=== PATIENT | female | born 1970 | race Caucasian/White ===

== ENCOUNTER 2020-04-10 10:36 | Day surgery (SDC) | payer OTHER ==
[~2020-04-10 10:36] MED LIST: HYDROCHLOROTH12.5 M1
[2020-04-10] MEDS ORDERED: MIRALAX17 GM PO (14:48)
[2020-04-10] MEDS ORDERED: ULTRAM50 MG PO (14:48)
[2020-04-10] MEDS ORDERED: TYLENOL ARTHRI650 MG PO (14:48)
== END 2020-04-10 17:25 | disposition home or self-care (01) ==
LOC: CIR.AMB 10:36
PROVIDERS: ATTEND Surgery
DX: K42.0 Umbilical hernia with obstruction, without gangrene (principal); Z20.828 Contact with and (suspected) exposure to other viral communicable diseases

== ENCOUNTER 2025-05-16 11:00 | Day surgery (SDC) | payer OTHER ==
[2025-05-13 09:43] VITALS: BP 145/83
[2025-05-13 10:24] LABS: BASO % 0.8 % (0.1-1.2); EOS # 0.07 (0.04-0.54); EOS % 1.1 % (0.7-7.0); LYMPH # 1.71 (1.18-3.74); LYMPH % 27.4 % (19.3-53.1); MEAN PLATELET VOLUME 10.70 fl (9.4-12.4); MONO # 0.48 (0.24-0.82); MONO % 7.7 % (4.7-12.5); NEUT # 3.92 (1.56-6.13); NEUT % 62.8 % (34.0-71.1); RED CELL DISTRIBUTION WIDTH 13.1 % (11.6-14.4)
[2025-05-13 10:33] LABS: URINE APPEARANCE Clear; URINE BILIRRUBIN Negative (NEGATIVE); URINE BLOOD Negative; URINE COLOR Yellow; URINE GLUCOSE Negative (NEGATIVE); URINE KETONE Negative (NEGATIVE); URINE LEUKOCYTE Trace; URINE NITRATE Negative; URINE PROTEIN Negative (NEGATIVE); URINE UROBILINOGEN 0.2 E.U./dl
[2025-05-13 10:39] LABS: URINE BACTERIA 345.4 uL (0.0-1933); URINE EPITHELIAL CELLS 12.8 uL (0.0-38.8); URINE RBC 15.0 uL (0.0-20.8); URINE WBC 10.4 uL (0.0-23.2)
[2025-05-13 10:43] LABS: INR 1.14
[2025-05-13 10:59] LABS: URINE CAST 0.00 uL (0.0-1.40)
[2025-05-13 11:10] LABS: BUN CREA RATIO 35.0 (7.0-25.0); CREATININE SERUM 0.52 mg/dL (0.55-1.02); GFR 122.43; GLUCOSE FASTING 93.0 mg/dL (65-100); OSMOLALITY SERUM 283.0 MOSM/KG (275-295)
[~2025-05-16] VITALS: Ht 160 cm; Wt 77.1 kg
[~2025-05-16 11:00] MED LIST changes: +MIRALAX17 GM PO; +TOPROL XL25 M1 PO; +TYLENOL ARTHRI650 MG PO; +ULTRAM50 MG PO
[2025-05-16] MEDS ORDERED: CEFAZOLIN SODIUM 1,000 MG VIAL ONE (12:13)
[2025-05-16] MEDS ORDERED: TYLENOL ARTHRI650 MG PO (12:28)
[2025-05-16] MEDS ORDERED: BUPIVACAINE HCL 30 ML VIAL IJ ONE (14:30)
== END 2025-05-16 16:55 | disposition home or self-care (01) ==
LOC: CIR.AMB 11:00
PROVIDERS: ATTEND Surgery
DX: D17.1 Benign lipomatous neoplasm of skin and subcutaneous tissue of trunk (principal); D49.2 Neoplasm of unspecified behavior of bone, soft tissue, and skin